=== PATIENT | female | born 1955 | race Caucasian/White ===

== ENCOUNTER → 2017-01-21 | Outpatient (CLI) | payer BC ==
[~2017-01-21] MED LIST: CALC600T37 PO; CHOL100010 PO; DULO-24 PO
--- NOTE | 2017-01-22 07:38 | MAMMOGRAPHY REPORT ---
BILATERAL DIGITAL SCREENING MAMMOGRAM TOMOSYNTHESIS WITH CAD: 01/21/2017 CLINICAL HISTORY: Routine screening examination. TECHNIQUE: Bilateral breast tomosynthesis in addition to standard 2D mammography was performed. Curr ent study was also evaluated with a Computer Aided Detection (CAD) system. COMPARISON: Comparison is made to exams dated: 04/17/2010 mammogram - [facility], , 01/01/2008, 12/26/2006, and 12/25/2005 mammogram - [facility]. BREAST COMPOSITION: There are scattered areas of fibroglandular density in both breasts. FINDINGS: There is a possible faint cluster of microcalcifications in the upper outer middle one th ird of the left breast. These are not clearly identified on the available 2009, 2008 or 2007 mammog [place]. However, comparing to more recent mammograms performed at [place] may be useful. If the o utside exams are not obtained in a timely manner, additional spot magnification views are recommende d. Otherwise, the breast parenchymal pattern is stable bilaterally. No other suspicious mass, architecture instructor ural distortion or cluster of microcalcifications is seen. IMPRESSION: ACR BI-RADS CATEGORY 0: INCOMPLETE EVALUATION: NEED ADDITIONAL IMAGING EVALUATION The possible faint cluster of microcalcifications in the upper outer quadrant of the left breast are indeterminate. They were not visualized on the available 2009 or prior mammograms. However, lexi rison to more recent mammograms would be useful. If these exams are not obtained in a timely manner , additional spot magnification views are recommended in the left breast. The patient will be called to schedule an appointment. Approximately 10% of breast cancers are not detected with mammography. A negative mammographic repor t should not delay biopsy if a clinically suggestive mass is present. Angeline Ohara M.D. ay/:01/21/2017 15:57:54 Linen Sorter: Martita BONNER(Kandace)(Cher), [facility] letter sent: Need Priors 0 BI-RADS Code: ACR BI-RADS Category 0: Incomplete Evaluation: Need Additional Imaging Evaluation
== END | disposition home or self-care (01) ==
LOC: C.MAMM 14:56
PROVIDERS: ATTEND Internal Medicine
DX: Z12.31 Encounter for screening mammogram for malignant neoplasm of breast (principal); R92.8 Other abnormal and inconclusive findings on diagnostic imaging of breast

== ENCOUNTER → 2017-01-24 | Outpatient (CLI) | payer BC ==
--- NOTE | 2017-01-24 13:31 | MAMMOGRAPHY REPORT ---
UNILATERAL LEFT DIGITAL DIAGNOSTIC MAMMOGRAM: 01/24/2017 CLINICAL HISTORY: Callback from screening mammogram for left breast calcifications. TECHNIQUE: Postprocedural left CC and ML views were obtained. COMPARISON: Comparison is made to exams dated: 01/21/2017 mammogram, 04/17/2010 mammogram - [facility] [address], 04/14/2009, 01/01/2008, and 12/26/2006. BREAST COMPOSITION: There are scattered areas of fibroglandular density in the left breast. FINDINGS: Spot magnification views of the left breast demonstrate a very faint grouping of calcific ations seen within the left 3:00 breast. The calcifications appear stable on the current exam to th e prior 2009 screening mammogram, when accounting for differences in mammographic technique. Given the stability since 2009, the calcifications are considered benign. A linear metallic scar marker d enotes a scar on the left upper outer breast. IMPRESSION: ACR BI-RADS CATEGORY 2: BENIGN Faint grouped calcifications in the left 3:00 breast are stable compared to the 2010 exam, and are c onsidered benign given long-term stability. There is no mammographic evidence of malignancy. A 1 yea r screening mammogram is recommended. The patient has been verbally notified of the results. Approximately 10% of breast cancers are not detected with mammography. A negative mammographic repor t should not delay biopsy if a clinically suggestive mass is present. Kiarra Pina M.D. /:01/24/2017 09:27:52 Air Brake Worker: Stephenie BONNER(Kandace)(Cher), [facility] letter sent: Normal 1/2 BI-RADS Code: ACR BI-RADS Category 2: Benign
== END | disposition home or self-care (01) ==
LOC: C.MAMM 09:07
PROVIDERS: ATTEND Internal Medicine
DX: R92.1 Mammographic calcification found on diagnostic imaging of breast (principal)